=== PATIENT | female | born 1965 | race Caucasian/White ===

== ENCOUNTER 2020-05-29 11:06 | Day surgery (SDC) | payer MEDICARE ==
[~2020-05-29 11:06] MED LIST: DIPRIVAN 200 MG/20 ML IV ONE; Ketamine HCl 50 MG/ML ONE
[2020-05-29] MEDS ORDERED: Depo-Medrol 40 MG/ML IM ONE (11:07)
[2020-05-29] MEDS ORDERED: BUPIVACAINE 0.5% VIAL IJ ONE (11:07)
[2020-05-29] MEDS ORDERED: Lactated Ringers 1,000 ML IV ONE (13:54)
--- NOTE | 2020-05-30 14:56 | XRAY ---
14 seconds fluoroscopy time in surgery for bilateral SI joint injections.
--- NOTE | 2020-06-01 22:55 | XRAY ---
Indication: Bilateral SI joint injections. Intraoperative fluoroscopy was provided for 14 seconds. 4 digital spot images submitted for interpretation demonstrate a posterior needle tip projected over the inferior aspect of both the right and left sacroiliac joint. Correlate with intraoperative findings/report.
== END 2020-05-29 13:40 | disposition home or self-care (01) ==
LOC: SDC-PAIN 11:06
PROVIDERS: ATTEND Psychiatry & Neurology Pain Medicine
DX: M46.1 Sacroiliitis, not elsewhere classified (principal); I10 Essential (primary) hypertension; Z79.899 Other long term (current) drug therapy; Z86.718 Personal history of other venous thrombosis and embolism
CPT/HCPCS: 72202; 77002; G0260; 27096; J1030; J2704

== ENCOUNTER 2020-07-10 11:09 | Day surgery (SDC) | payer MEDICARE ==
[2020-07-10] MEDS ORDERED: LIDOCAINE HCL 2% 100 MG/5 ML IJ ONE (11:10)
[2020-07-10] MEDS ORDERED: BUPIVACAINE 0.5% VIAL IJ ONE (11:10)
[2020-07-10] MEDS ORDERED: DIPRIVAN 200 MG/20 ML IV ONE (13:08)
[2020-07-10] MEDS ORDERED: Ketamine HCl 50 MG/ML ONE (13:08)
--- NOTE | 2020-07-10 14:02 | XRAY ---
Indication: Bilateral L4-S1 MBB. Intraoperative fluoroscopy was provided for 13 seconds. Single digital spot image submitted for interpretation demonstrates posterior needle tips projecting over the expected left and right L4-S1 nerve roots. Correlate with intraoperative findings/report.
--- NOTE | 2020-07-10 14:07 | XRAY ---
13 seconds fluoroscopy time in surgery for bilateral SI joint injections.
[2020-07-10] MEDS ORDERED: Lactated Ringers 1,000 ML IV ONE (16:47)
== END 2020-07-10 13:37 | disposition home or self-care (01) ==
LOC: SDC-PAIN 11:09
PROVIDERS: ATTEND Psychiatry & Neurology Pain Medicine
DX: M47.816 Spondylosis without myelopathy or radiculopathy, lumbar region (principal); K21.9 Gastro-esophageal reflux disease without esophagitis; I10 Essential (primary) hypertension; Z86.711 Personal history of pulmonary embolism; Z79.899 Other long term (current) drug therapy
CPT/HCPCS: 64493; 64494; 72020; 77002; J2704

== ENCOUNTER 2020-09-25 09:09 | Day surgery (SDC) | payer MEDICARE ==
[2020-09-25] MEDS ORDERED: Depo-Medrol 40 MG/ML IM ONE (09:10)
[2020-09-25] MEDS ORDERED: BUPIVACAINE 0.5% VIAL IJ ONE (09:10)
[2020-09-25] MEDS ORDERED: DIPRIVAN 200 MG/20 ML IV ONE (11:02)
[2020-09-25] MEDS ORDERED: Ketamine HCl 50 MG/ML ONE (11:02)
--- NOTE | 2020-09-25 13:14 | XRAY ---
Indication: Right SI joint injection. Intraoperative fluoroscopy was provided for 10 seconds. 2 digital spot images submitted for interpretation demonstrates posterior needle tip projecting over the right SI joint. Correlate with intraoperative findings/report.
--- NOTE | 2020-09-25 13:46 | XRAY ---
10 seconds of fluoroscopy was used in surgery for a right SI joint injection.
[2020-09-25] MEDS ORDERED: Lactated Ringers 1,000 ML IV ONE (15:00)
== END 2020-09-25 11:25 | disposition home or self-care (01) ==
LOC: SDC-PAIN 09:09
PROVIDERS: ATTEND Psychiatry & Neurology Pain Medicine
DX: M46.1 Sacroiliitis, not elsewhere classified (principal); I10 Essential (primary) hypertension; Z86.718 Personal history of other venous thrombosis and embolism; Z79.899 Other long term (current) drug therapy
CPT/HCPCS: 27096; 72020; 77002; G0260; J1030; J2704

== ENCOUNTER 2021-08-06 13:32 | Day surgery (SDC) | payer MEDICARE ==
[2021-08-06] MEDS ORDERED: BUPIVACAINE 0.5% VIAL IJ ONE (13:33)
[2021-08-06] MEDS ORDERED: DIPRIVAN 200 MG/20 ML IV ONE (15:18)
[2021-08-06] MEDS ORDERED: Lactated Ringers 1,000 ML IV ONE (15:40)
--- NOTE | 2021-08-06 16:38 | XRAY ---
Indication: Left C2-C4 MBB. Intraoperative fluoroscopy provided for 13 seconds. 2 digital spot image submitted for interpretation demonstrates posterior needle tips projecting over the expected left C2-C4 nerve roots. Correlate with intraoperative findings/report. Incidental incompletely visualized lower cervical fusion hardware.
--- NOTE | 2021-08-06 16:44 | XRAY ---
13 seconds fluoroscopy time in surgery for left C2-C4 MBB.
== END 2021-08-06 15:45 | disposition home or self-care (01) ==
LOC: SDC-PAIN 13:32
PROVIDERS: ATTEND Psychiatry & Neurology Pain Medicine
DX: M47.812 Spondylosis without myelopathy or radiculopathy, cervical region (principal); I10 Essential (primary) hypertension; Z79.899 Other long term (current) drug therapy
CPT/HCPCS: 64490; 64491; 72040; 77002; J2704

== ENCOUNTER 2021-11-26 09:52 | Day surgery (SDC) | payer MEDICARE ==
[2021-11-26] MEDS ORDERED: BUPIVACAINE 0.5% VIAL IJ ONE (09:53)
[2021-11-26] MEDS ORDERED: Lactated Ringers 1,000 ML IV ONE (11:59)
[2021-11-26] MEDS ORDERED: DIPRIVAN 200 MG/20 ML IV ONE (12:15)
--- NOTE | 2021-11-26 14:24 | XRAY ---
Indication: Left C2-C5 MBB. Intraoperative fluoroscopy provided for 15 seconds. 2 digital spot image submitted for interpretation demonstrates posterior needle tips projecting over the expected left C2-C5 nerve roots. Correlate with intraoperative findings/report. Incidental incompletely visualized lower cervical fusion hardware.
--- NOTE | 2021-11-26 14:48 | XRAY ---
15 seconds of fluoroscopy was used in surgery for a left C2-C5 MBB.
== END 2021-11-26 12:42 | disposition home or self-care (01) ==
LOC: SDC-PAIN 09:52
PROVIDERS: ATTEND Psychiatry & Neurology Pain Medicine
DX: M47.812 Spondylosis without myelopathy or radiculopathy, cervical region (principal); I10 Essential (primary) hypertension; Z79.899 Other long term (current) drug therapy
CPT/HCPCS: 64490; 64491; 64492; 72040; 77002; J2704

== ENCOUNTER 2021-12-25 11:33 | Day surgery (SDC) | payer MEDICARE ==
[2021-12-25] MEDS ORDERED: Decadron 4 MG INJ IV ONE (11:34)
[2021-12-25] MEDS ORDERED: Xylocaine 1% Vial 30 ML PF IJ ONE (11:34)
[2021-12-25] MEDS ORDERED: BUPIVACAINE 0.5% VIAL IJ ONE (11:34)
[2021-12-25] MEDS ORDERED: Lactated Ringers 1,000 ML IV ONE (14:06)
[2021-12-25] MEDS ORDERED: DIPRIVAN 200 MG/20 ML IV ONE (14:29)
--- NOTE | 2021-12-25 15:19 | XRAY ---
Indication: Left C2-C4 RFA Intraoperative fluoroscopy provided for 23 seconds. 3 digital spot images submitted for interpretation demonstrates posterior needle tips projecting over the expected left C2-C4 nerve roots. Correlate with intraoperative findings/report. Incidental lower cervical fusion hardware.
--- NOTE | 2021-12-25 15:21 | XRAY ---
23 seconds fluoroscopy time in surgery for left C2-C4 RFA.
== END 2021-12-25 15:00 | disposition home or self-care (01) ==
LOC: SDC-PAIN 11:33
PROVIDERS: ATTEND Psychiatry & Neurology Pain Medicine
DX: M47.812 Spondylosis without myelopathy or radiculopathy, cervical region (principal); I10 Essential (primary) hypertension; Z79.899 Other long term (current) drug therapy
CPT/HCPCS: 01939; 64633; 64634; 72040; 77002; J1100; J2001; J2704

== ENCOUNTER 2023-02-03 12:00 | Day surgery (SDC) | payer MEDICARE ==
[2023-02-03] MEDS ORDERED: LIDOCAINE HCL 1% 50 MG/5 ML VL PF IJ ONE (12:01)
[2023-02-03] MEDS ORDERED: Decadron 4 MG INJ IV ONE (12:01)
[2023-02-03] MEDS ORDERED: BUPIVACAINE 0.5% VIAL IJ ONE (12:01)
[2023-02-03] MEDS ORDERED: DIPRIVAN 200 MG/20 ML IV ONE ×2 (14:15→14:34)
[2023-02-03] MEDS ORDERED: Lactated Ringers 1,000 ML IV ONE (15:21)
--- NOTE | 2023-02-03 16:31 | XRAY ---
Indication: Left C2-C4 RFA. Intraoperative fluoroscopy provided for 14 seconds. 3 digital spot images submitted for interpretation demonstrates posterior needle tips projecting over the expected left C2-C4 nerve roots. Correlate with intraoperative findings/report. Incidental lower cervical fusion hardware.
--- NOTE | 2023-02-03 17:21 | XRAY ---
14 seconds of fluoroscopy was used in surgery for a left C2-C4 RFA.
== END 2023-02-03 15:00 | disposition home or self-care (01) ==
LOC: SDC-PAIN 12:00
PROVIDERS: ATTEND Psychiatry & Neurology Pain Medicine
DX: M47.812 Spondylosis without myelopathy or radiculopathy, cervical region (principal); Z79.899 Other long term (current) drug therapy
CPT/HCPCS: 64633; 64634; 72040; 77002; J1100; J2001; J2704

== ENCOUNTER 2024-05-31 10:09 | Day surgery (SDC) | payer MEDICARE, OTHER ==
[2024-05-31] MEDS ORDERED: Decadron 4 MG INJ IV ONE (10:10)
[2024-05-31] MEDS ORDERED: Xylocaine-Mpf 2% 5 Ml Vial IJ ONE (10:10)
[2024-05-31] MEDS ORDERED: DIPRIVAN 200 MG/20 ML IV ONE (12:12)
[2024-05-31] MEDS ORDERED: Lactated Ringers 1,000 ML IV ONE (12:43)
--- NOTE | 2024-05-31 14:06 | XRAY ---
Indication: Right C2-C4 MBB. Intraoperative fluoroscopy provided for 7 seconds. 2 digital spot image submitted for interpretation demonstrates posterior needle tips projecting over the expected right C2-C4 nerve roots. Correlate with intraoperative findings/report. Incidental lower cervical fusion hardware.
--- NOTE | 2024-05-31 14:40 | XRAY ---
7 seconds of fluoroscopy was used in surgery for a right C2-C4 MBB.
== END 2024-05-31 12:40 | disposition home or self-care (01) ==
LOC: SDC-PAIN 10:09
PROVIDERS: ATTEND Psychiatry & Neurology Pain Medicine
DX: M47.812 Spondylosis without myelopathy or radiculopathy, cervical region (principal)
CPT/HCPCS: 64490; 64491; 72040; 77002; J1100; J2704

== ENCOUNTER 2025-05-30 10:10 | Day surgery (SDC) | payer MEDICARE, OTHER ==
[2025-05-30] MEDS ORDERED: BUPIVACAINE 0.5% VIAL IJ ONE (10:11)
[2025-05-30] MEDS ORDERED: propofoL IV ONE (11:24)
[2025-05-30] MEDS ORDERED: Lactated Ringers 1,000 ML IV ONE (12:40)
--- NOTE | 2025-05-30 12:53 | XRAY ---
Indication: Right C2-C4 MBB. Intraoperative fluoroscopy provided for 10 seconds. 2 digital spot images submitted for interpretation demonstrates posterior needle tips projecting over expected right C2-C4 nerve roots. Correlate with intraoperative findings/report.
--- NOTE | 2025-05-30 12:58 | XRAY ---
10 seconds of fluoroscopy was used in surgery for a right C2-C4 MBB.
== END 2025-05-30 11:54 | disposition home or self-care (01) ==
LOC: SDC-PAIN 10:10
PROVIDERS: ATTEND Psychiatry & Neurology Pain Medicine
DX: M47.812 Spondylosis without myelopathy or radiculopathy, cervical region (principal)

== ENCOUNTER 2025-07-04 11:21 | Day surgery (SDC) | payer MEDICARE, OTHER ==
[2025-07-04] MEDS ORDERED: LIDOCAINE HCL 1% 50 MG/5 ML VL IJ ONE (11:22)
[2025-07-04] MEDS ORDERED: BUPIVACAINE 0.5% VIAL IJ ONE (11:22)
[2025-07-04] MEDS ORDERED: propofoL IV ONE (12:51)
[2025-07-04] MEDS ORDERED: Lactated Ringers 1,000 ML IV ONE (14:51)
--- NOTE | 2025-07-04 14:51 | XRAY ---
Indication: Right C2-C4 RFA. Intraoperative fluoroscopy provided for 19 seconds. 3 digital spot image submitted for interpretation demonstrates posterior needle tips projecting over expected right C2-C4 nerve roots. Correlate with intraoperative findings/report. Incidental lower cervical fusion hardware.
--- NOTE | 2025-07-04 16:59 | XRAY ---
19 seconds of fluoroscopy was used in surgery for a right C2-C4 RFA.
== END 2025-07-04 13:18 | disposition home or self-care (01) ==
LOC: SDC-PAIN 11:21
PROVIDERS: ATTEND Psychiatry & Neurology Pain Medicine
DX: M47.812 Spondylosis without myelopathy or radiculopathy, cervical region (principal)